=== PATIENT | female | born 2000 | race Caucasian/White ===

== ENCOUNTER 2020-10-27 16:57 | Emergency (ER) | payer SELFPAY ==
[2020-10-27 17:31] VITALS: BP 120/79; BP 126/78; PULSE 132; RESP 16; TEMP 36.9; O2SAT 98; BMI 22.6
--- NOTE | 2020-10-27 18:43 | PC.NURSE ---
pt left WR without being seen. She ambulated with steady gait
== END 2020-10-27 19:01 | disposition left against medical advice (07) ==
PROVIDERS: Emergency Provider Emergency Medicine
DX: J02.9 Acute pharyngitis, unspecified (principal); R11.2 Nausea with vomiting, unspecified
CPT/HCPCS: 99281; 99282

== ENCOUNTER 2024-09-17 21:56 | Inpatient (IN) | payer BC, SELFPAY ==
[2024-09-17 22:12] VITALS: BP 110/80; BP 117/96; PULSE 102; PULSE 105; RESP 18; TEMP 37.1; O2SAT 98; BMI 26.6
--- NOTE | 2024-09-17 22:15 | ED.PSYCH ---
HPI - Psych General Chief Complaint: Psychiatric Symptoms Stated Complaint: mental breakdown, depresseion, si Time Seen by Provider: 09/17/24 22:15 Source: patient Mode of arrival: EMS Limitations: no limitations History of Present Illness ED Provider: HPI Narrative: Patient's history of depression had few drinks and driving with her mother had a mental breakdown started crying with SI with no plan patient is tearful in between Related Data Home Medications ?Medication ?Instructions ?Recorded ?Confirmed cetirizine 10 mg capsule (Zyrtec) 10 mg PO DAILY PRN 02/08/22 Allergies Allergy/AdvReac Type Severity Reaction Status Date / Time amoxicillin Allergy Mild Patient Uncoded 09/17/24 22:17 feels wierd on it. Review of Systems Review of Systems: Yes all other systems are reviewed and are negative [facility] Past Medical History Medical History No known health problems Social History Social History Do you have a plan to hurt others: No Plan Physical Exam Vital Signs: Vital Signs: Last Vital Signs Temp 98.8 F 09/17/24 22:12 Pulse 102 H 09/17/24 22:12 Resp 18 09/17/24 22:12 BP 117/96 H 09/17/24 22:12 Pulse Ox 98 09/17/24 22:12 O2 Del Method Room Air 09/17/24 22:12 BMI result Body Mass Index 26.6 Appearance: Alert. Oriented X3. No acute distress. ETOH++ Eyes: PERRLA, ENT: Pharynx normal. Oral Mucosa moist Neck: Normal inspection. Neck supple. CVS: Normal heart rate and rhythm. Pulses normal. Respiratory: No respiratory distress. Equal air entry bilateral, no wheezing/rales/rhonchi Abdomen: Soft and nontender. Bowel sounds are present, no mass palpable, no CVA tenderness Skin: Skin warm and dry. Normal skin color. Normal skin turgor. Extremities: No lower extremity edema. No calf tenderness psych: Depressed crying denies SI at this time Neuro: Oriented X 3. No motor deficit. No sensory deficit.No cerebellar signs , cranial nerves II-XII intact Medications Administered Discontinued Medications Generic Name Dose Route Start Last Admin Trade Name Freq PRN Reason Stop Dose Admin Lorazepam 2 mg 09/17/24 22:24 09/17/24 22:28 Lorazepam 1 Mg Tablet PO 09/17/24 22:25 2 mg ONCE ONE Administration Lorazepam 2 mg 09/18/24 03:22 09/18/24 03:28 Lorazepam 2 Mg/Ml Vial IM 09/18/24 03:23 2 mg STAT STA Administration Ondansetron HCl 4 mg 09/17/24 22:46 09/17/24 22:49 Ondansetron Odt 4 Mg Tab.Rapdis TRANSLINGU 09/17/24 22:47 4 mg ONCE ONE Administration Medical Decision Making Medical Decision Making MDM Narrative: Patient's depression, anxiety with suicidal ideation without any plan intoxicated will get care team involved Lab Data MDM Lab Attestation statement: I reviewed the patient's lab results. 09/18/24 02:59 09/18/24 02:59 Labs: Lab Results 09/18/24 Range/Units 02:59 WBC 7.8 (4.8-10.8) X10*3/uL RBC 5.04 (4.20-5.50) X10*6/uL Hgb 15.4 (12.0-16.0) g/dl Hct 45.0 (37.0-47.0) % MCV 89.3 (80.0-98.0) fL MCH 30.6 (27.0-33.0) pg MCHC 34.2 (31.0-35.0) g/dl RDW 12.4 (11.0-16.0) % Plt Count 252 (160-400) X10*3/uL MPV 9.3 L (9.4-12.3) fL Immature Gran % (Auto) 0.4 (0.0-0.4) % Neut % (Auto) 75.4 H (45-73) % Lymph % (Auto) 19.8 L (20-40) % [place] % (Auto) 3.9 (2-11) % Eos % (Auto) 0.0 (0-4) % Baso % (Auto) 0.5 (0-2) % Lymph # (Auto) 1.5 (1.2-4.9) X10*3/uL [place] # (Auto) 0.3 (0.1-1.2) X10*3/uL Eos # (Auto) 0.0 (0.0-0.4) X10*3/uL Baso # (Auto) 0.0 (0.0-0.2) X10*3/uL Abs Immat Gran (auto) 0.03 (0.00-0.03) X10*3/uL Absolute Neuts (auto) 5.9 (2.0-8.3) x10*3/uL Absolute Nucleated RBC 0.000 (0.0-0.012) X10*3/uL Nucleated RBC % (auto) 0.0 (0.0-0.2) /100WBC Sodium 146 H (135-145) mmol/L Potassium 4.2 (3.3-5.1) mmol/L Chloride 114 H (96-108) mmol/L Carbon Dioxide 21 L (22-29) mmol/L Anion Gap 15 (12-20) BUN 10 (9-16) mg/dL Creatinine 0.72 (0.5-1.4) mg/dL Estim Creat Clear Calc 109.6 Estimated GFR > 60 Random Glucose 91 (60-115) mg/dL Calcium 9.1 (8.4-10.2) mg/dL Total Bilirubin 0.2 (0.0-1.0) mg/dL AST 22 (5-31) U/L ALT 19 (0-31) U/L Alkaline Phosphatase 29 L (39-117) U/L Total Protein 7.5 (6.5-8.0) g/dL Albumin 4.6 (3.5-5.0) g/dL Urine Test NEGATIVE (NEGATIVE) Salicylates < 5.0 L (15-30) mg/dL Urine Opiates Screen Not Detected (Not Detect) Ur Buprenorphine Scrn Not Detected (Not Detect) ng/mL Ur Oxycodone Screen Not Detected (Not Detect) ng/mL Urine Methadone Screen Not Detected (Not Detect) ng/mL Urine Fentanyl Screen Not Detected (Not Detect) Acetaminophen < 3 (<30) mcg/mL Ur Barbiturates Screen Not Detected (Not Detect) Ur Phencyclidine Scrn Not Detected (Not Detect) Ur Amphetamines Screen Not Detected (Not Detect) U Benzodiazepines Scrn Not Detected (Not Detect) Urine Cocaine Screen Not Detected (Not Detect) U Marijuana (THC) Screen POSITIVE H (Not Detect) Ethyl Alcohol 140 mg/dL Discharge Plan Discharge Clinical Impression: Depression, Acute anxiety, Alcohol intoxication Patient Disposition: Still a Patient Prescriptions: No Action Zyrtec 10 mg capsule 10 mg PO DAILY PRN Interventions: Ewing-Suicide Risk Severity Scale Last Done: 09/18/24 01:00 Print Language: Unknown
[2024-09-17] MEDS: LORazepam 1 MG TABLET 2 MG PO (22:28)
[2024-09-17] MEDS: Ondansetron ODT 4 MG TAB.RAPDIS TRANSLINGU (22:49)
--- NOTE | 2024-09-17 23:24 | PC.NURSE ---
client asked about keys and phone, iddnt have with her, expressed concern about her cat missing her, and expressed that she only wanted her father spoken to by staff. in the last ten minutes father returned call and stated he felt dtr needed help. client asleep presently.
[2024-09-18 03:05] LABS: Basophils Percent Auto 0.5 % (0-2); Hemoglobin 15.4 g/dl (12.0-16.0); Imm Gran Abs Auto 0.03 X10*3/uL (0.00-0.03); Imm Gran Pct Auto 0.4 % (0.0-0.4); Lymphocytes Absolute Auto 1.5 X10*3/uL (1.2-4.9); Lymphocytes Percent Auto 19.8 % (20-40); MANUAL DIFF FLAG NO; Mean Corpuscular HGB Conc 34.2 g/dl (31.0-35.0); Mean Corpuscular Hemoglobin 30.6 pg (27.0-33.0); Mean Corpuscular Volume 89.3 fL (80.0-98.0); Mean Platelet Volume 9.3 fL (9.4-12.3); Monocytes Absolute Auto 0.3 X10*3/uL (0.1-1.2); Monocytes Percent Auto 3.9 % (2-11); Neutrophils Absolute Auto 5.9 x10*3/uL (2.0-8.3); Neutrophils Percent Auto 75.4 % (45-73); Platelet Count 252 X10*3/uL (160-400); Red Blood Count 5.04 X10*6/uL (4.20-5.50); Red Cell Distribution Width 12.4 % (11.0-16.0); White Blood Count 7.8 X10*3/uL (4.8-10.8)
[2024-09-18 03:08] LABS: UPreg QC Valid YES; Urine Pregnancy NEGATIVE (NEGATIVE)
[2024-09-18 03:20] LABS: Amphetamine Screen Urine Not Detected (Not Detect); Barbiturates, Urine Not Detected (Not Detect); Benzodiazepines Screen Urine Not Detected (Not Detect); Buprenorphine Scr Not Detected (Not Detect); Cannabinoid Screen Urine POSITIVE (Not Detect); Cocaine Screen Urine Not Detected (Not Detect); Fentanyl, urine Not Detected (Not Detect); Methadone Screen, Urine Not Detected (Not Detect); Opiate Screen Urine Not Detected (Not Detect); Oxycodone Screen Urine Not Detected (Not Detect); Phencyclidine Screen Urine Not Detected (Not Detect)
[2024-09-18 03:27] LABS: Alanine Aminotransferase 19 U/L (0-31); Albumin Level 4.6 g/dL (3.5-5.0); Anion Gap 15 (12-20); Aspartate Amino Transferase 22 U/L (5-31); Bilirubin Total 0.2 mg/dL (0.0-1.0); Blood Urea Nitrogen 10 mg/dL (9-16); Calcium 9.1 mg/dL (8.4-10.2); Carbon Dioxide 21 mmol/L (22-29); Chloride 114 mmol/L (96-108); Creatinine Clr Calc Pharmacy 109.6; Estimated Glomerular Filt Rate > 60; Ethanol 140 mg/dL; Glucose Random 91 mg/dL (60-115); Potassium 4.2 mmol/L (3.3-5.1); Sodium 146 mmol/L (135-145); Total Protein 7.5 g/dL (6.5-8.0)
[2024-09-18] MEDS: LORazepam 2 MG/ML VIAL IM ×2 (03:28→10:59)
[2024-09-18 03:49] LABS: Alkaline Phosphatase 29 U/L (39-117)
[2024-09-18 03:58] LABS: Acetaminophen LAB < 3 mcg/mL (<30); Salicylate < 5.0 mg/dL (15-30)
[2024-09-18] MEDS: Ondansetron ODT 4 MG TAB.RAPDIS TRANSLINGU (07:14)
--- NOTE | 2024-09-18 07:14 | PC.NURSE ---
Pt vomiting in room; Zofran PO gv per orders
--- NOTE | 2024-09-18 07:31 | PC.NURSE ---
Care membership counselor at bedside to eval pt
--- OUTSIDE RECORDS SUMMARY | 2024-09-18 08:06 | XMS_ITS | Continuity of Care Document ---
Author Organization [facility], , [facility] [place] OFFICE Address [address] [place] [address] [place] [address] Care Team Providers Care Community Affairs Manager Name Role Phone [facility] Informatics Application Analyst MAULIK FINK Styrene Dehydration Reactor Operator DEMARCO ALCALA Primary Care Provider [phone] Assessment No assessment recorded. Plan of Treatment Reminders Order Date Submit Date Provider Last Modified By Organization Details Last Modified Time Details Appointments None recorded. Lab None recorded. Referral None recorded. Procedures None recorded. Surgeries None recorded. Imaging None recorded. Medication Orders ondansetron 8 mg disintegrat ing tablet [address] [facility] #[id number], [address] [facility] , [place], [address], 5 15:37:02 Patient TargetsNo targets recorded. Patient InstructionsNo instructions recorded. Reason for Referral None Reported. Problems Name Problem SNOMED Code Status Onset Date Resolution Date Notes Provider Name and Address Organization Details Recorded Time Acne [id number] Active 07/26/20 16 Alicia Baires PA-C [address] [place] [address], [phone], [facility] 07/26/2016 11:53:27 Problem Notes None recorded. Procedures Surgical History Date Name Laterality Status Provider Name and Address Organization Details Recorded Time 4 G2211 completed Janet Gastelum MD [address] [place] [address], [phone], [facility] 10/15/2023 21:30:39 3 Depression Screening completed NOVEMBER CONNIE KIRBY DNP [address] [place], [address], [facility] 01/13/2023 11:40:07 3 prevention-alverto carpio alcohol misuse screening completed NOVEMBER CONNIE IS, DNP [address] [place], [address], [facility] 01/13/2023 11:40:10 1 Refraction completed Isabel Hewitt [facility] 07/02/2021 09:05:02 0 Contact Lens Re-eval completed Madeleine Vazquez, OD [address] [place], [address], [facility] 03/31/2020 09:59:53 9 POC Strep Testing completed Claudette Rubi [facility] 02/24/2019 10:57:12 8 Refraction completed [facility] 01/12/2018 11:09:45 8 Contact Lens Re-eval completed [facility] 01/12/2018 11:09:46 8 POC Flu Testing completed Anil Edge LPN [facility] 08/14/2017 10:18:55 8 POC Strep Testing completed Anil Edge TALENT ACQUISITION DIRECTOR [facility] 08/14/2017 10:18:51 7 Refraction completed [facility] 12/27/2016 09:42:21 7 Contact Lens Re-eval completed Madeleine Vazquez, OD [address] [place], [address], [facility] 12/27/2016 10:16:44 6 Contact Lens Re-eval completed Madeleine Vazquez, OD [address] [place], [address], [facility] 12/14/2015 15:24:33 6 Contact Lens Fitting completed Madeleine Vazquez, OD [address] [place], [address], [facility] 11/30/2015 15:32:50 04/07/201 6 Refraction completed Madeleine Vazquez, OD [address] [place], [address], [facility] 11/09/2015 16:28:09 Imaging Results None recorded. Procedure Notes None recorded. Medical Equipment None Reported. Allergies Allergen ID Allergen Name Allergen Category Reaction Reaction Severity Criticality Documentation Date Start Date Code Code System Note Provider Name and Address Organization Details Recorded Time [id number] amoxicill in medicatio n itching Not available Not available 08/12/2017 723 RxNorm SOLITARIO Dave, [facility] 8 07:59:55 Medications Name Sig Start Date Stop Date Status Note LastModified by Organization Details LastModified Time fluzone quadrival ent .5 ml carlton 08/08 completed Not Available Not Available Not Available sulfaceta mide sodium 10 % lotn 08/20 completed duplicat e Not Available Not Available Not Available minocycli ne hydrochlo ride 100 mg caps 08/20 completed Not Available Not Available Not Available clindamyc in/benzoy l peroxide 1-5 %gel 08/20 completed Not Available Not Available Not Available loperamid e 2 mg capsule TAKE 1 CAPSULE BY MOUTH EVERY DAY AT BEDTIME FOR 12 DAYS. 08/08 completed Not Available Not Available Not Available azithromy meredith 250 mg tablet TAKE 2 TABLETS BY MOUTH TODAY, THEN TAKE 1 TABLET DAILY FOR 4 DAYS 01/13 completed not taking 07/02/21 Not Available Not Available Not Available fluconazo le 150 mg tablet TAKE 1 TABLET BY MOUTH ONE DOSE FOR 1 DAY 01/13 completed Not Available Not Available Not Available tretinoin 0.025 % topical cream 01/13 completed Not Available Not Available Not Available minocycli ne 100 mg capsule TAKE ONE CAPSULE BY MOUTH TWICE DAILY WITH FOOD. 08/08 completed Not Available Not Available Not Available sulfaceta mide sodium (acne) 10 % lotion (suspensi on) 10/02 completed Not Available Not Available Not Available clindamyc in 1 %-benzoyl peroxide 5 % topical gel APPLY A SMALL AMOUNT TO AFFECTED AREA AT BEDTIME MAY BLEACH CLOTHING AND BEDDING. 01/13 completed Not Available Not Available Not Available omeprazol e 40 mg capsule,d elayed release TAKE 1 CAPSULE BY MOUTH EVERY DAY TO COMPLETE 30 DAYS REPEAT IF SYMPTOMS RECUR 01/13 completed not taking 07/02/21 Not Available Not Available Not Available ondansetr on 8 mg disintegr ating tablet PLACE 1 TABLET 3 TIMES A DAY BY TRANSLIN GUAL ROUTE NEEDED, FOR NAUSEA. active Not Available Not Available No t Available triamcino lone acetonide 0.025 % topical cream PLEASE SEE ATTACHED FOR DETAILED DIRECTIO NS active PRN Not Available Not Available No t Available doxycycli ne monohydra te 100 mg capsule 01/13 completed not taking 07/02/21 Not Available Not Available Not Available diclofena c sodium 75 mg tablet,de layed release TAKE 1 TABLET BY MOUTH TWICE A DAY 10/15 completed Not Available Not Available Not Available alclometa sone 0.05 % topical ointment APPLY TOPICALL Y TO ECZEMA ON AREA AROUND EYES TWICE A DAY FOR 1 TO 2 WEEKS, NEEDED 10/02 completed rx Not Available Not Available Not Available fluocinon natividad 0.05 % topical cream APPLY TO RASH AREAS TWICE A DAY FOR 1- 2 WEEKS NEEDED. ( NOT FOR FACE) 08/08 completed prn Not Available Not Available Not Available ondansetr on 4 mg disintegr ating tablet Place 1 tablet twice a day by translin gual route as needed for 25 days. 2024 active Not Available Not Available Not Avai lable amoxicill in 875 mg-potass ium clavulana te 125 mg tablet TAKE 1 TABLET BY MOUTH TWICE A DAY FOR 7 DAYS 08/12 completed Not Available Not Available Not Available amoxicill in 500 mg-potass ium clavulana te 125 mg tablet TAKE 1 TABLET BY MOUTH THREE TIMES A DAY FOR 7 DAYS 01/13 completed Not Available Not Available Not Available Laura 14 mcg/24 hr (up to 3 years) 13.5 mg intrauter ine device Take by intraute rine route. 10/02 completed Not Available Not Available Not Available Kyleena 17.5 mcg/24 hr (up to 5 years) 19.5 mg intrauter ine device Take by intraute rine route. 01/13 completed Pt reports IUD has been removed- 07/02/21 Not Available Not Available Not Available Flucelvax Quad [id number] (PF) 60 mcg (15 mcg x 4)/0.5 mL IM syringe TO BE ADMINIST ERED BY ARIANNE TYSON FOR IMMUNIZA TION 08/20 completed Not Available Not Available Not Available Vitals Date Recorded Body height Body mass index (BMI) Body weight Heart rate Oxygen saturation Oxygen saturation in Arterial blood by Pulse oximetry Systolic blood pressure Diastolic blood pressure Provider Name and Address Organization Details Last Updated DateTime 5 154.94 cm 23.7 kg/m2 55224.1 g 71 /min 100 % 100 % 122 mm[Hg] 76 mm[Hg] Liz Sparrow [facility] 5 15:01:21 Social History Question Answer Notes LastModified by Organizat ion Details LastModified Time Tobacco Smoking Status Never Smoker SHAY Guerra, [facility] 10/16/2023 15:34:39 What Is Your Level Of Alcohol Consumption? Occasional 1-2 Drinks/month . Information not available 10/16/2023 Do You Wear A Helmet When Biking? Yes Information not available 07/26/2016 What Is Your Level Of Caffeine Consumption? Moderate 1/2 Cup Daily Information not available 01/13/2023 How Much Tobacco Do You Chew? None Information not available 07/26/2016 Are You Currently Employed? Yes Information not available 08/08/2023 What Type Of Diet Are You Following? REGULAR [email or web address] Information not available 10/15/2017 Which Illicit Or Recreational Drugs Have You Used? THC/CBD Gummes [email or web address] Information not available 01/13/2023 Do You Or Have You Ever Used E-cigarettes Or Vape? 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 [employer] Information not available 08/08/2023 Have There Been Any Changes To Your Family Or Social Situation? No [email or web address] Information not available 01/13/2023 Are There Any Guns Present In Your Home? No Information not available 07/26/2016 Do You Use Insect Repellent Routinely? No [email or web address] Information not available 01/13/2023 Live Alone Or With Others? With Others Dorm [employer] With Roomates; With Family Otherwise Information not available 07/26/2016 Patient Has Health Care Proxy Signed And In Chart Yes [email or web address] Information not available 01/06/2019 Marital Status Single Informati on not available 07/26/2016 Mosquito Repellent Used Routinely Yes Information not available 07/26/2016 What Was The Date Of Your Most Recent Tobacco Screening? 10/16/2023 Information not available 10/16/2023 How Many Children Do You Have? 0 Information not available 07/26/2016 Do You Use Your Seat Belt Or Car Seat Routinely? Yes [email or web address] Information not available 01/13/2023 Seat Belts Used Routinely Yes Information not available 07/26/2016 Are You Sexually Active? Yes [email or web address] Information not available 10/15/2017 Smoke Alarm In Home Yes Information not available 07/26/2016 Do You Have Smoke And Carbon Monoxide Detectors In Your Home? Yes Information not available 08/08/2023 Are You Passively Exposed To Smoke? No Information not available 08/08/2023 Do You Or Have You Ever Used Smokeless Tobacco? Never Used Smokeless Tobacco [email or web address] Information not available 10/16/2023 How Much Tobacco Do You Smoke? No [email or web address] Information not available 10/16/2023 General Stress Level Medium Information not available 07/26/2016 Do You Use Any Illicit Or Recreational Drugs? Yes [email or web address] Information not available 01/13/2023 Do You Use Sunscreen Routinely? Yes Information not available 07/26/2016 Do You Or Have You Ever Used Any Other Forms Of Tobacco Or Nicotine? No Information not available 08/08/2023 Sex: Unknown Functional Status Question Answer Note LastModified by Organizat ion Details LastModified Time What is your exercise level? Occasional Information not available 07/26/2016 Mental Status None recorded. Family History Nothing Reported Notes:M GM: d alzheimers, le ukemia M GF: d depression P GM: d P GF: d [place] Mom: 52 A&W Dad: 56 CHF, heart transplant Sis: 0 Bro: 0 Mary: 0 Son: 0 Medical History No medical history recorded. Gynecological History Statement/Question Response Menses Monthly N Current Control Method IUD Date of LMP 09/18/2017 Obstetrics History GPAL:G 0 P 0 0 0 0 Immunizations Vaccine Type Date Status Note Provider Nam e and Address Organization Details Recorded Time Influenza, split virus, quadrivalent, preservative 6 completed Not Available [facility] 08/14/2023 15:17:26 Tdap 9 completed Not Available [facility] 08/21/2019 02:24:00 influenza, unspecified formulation 7 completed Not Available [facility] 08/14/2023 15:17:26 Influenza, split virus, quadrivalent, preservative 9 completed Not Available [facility] 08/14/2023 15:17:25 Influenza, split virus, quadrivalent, preservative 0 completed Not Available [facility] 08/14/2023 15:17:25 COVID-19, mRNA, LNP-S, PF, 100 mcg/0.5mL dose or 50 mcg/0.25mL dose 0 completed Not Available [facility] 08/14/2023 15:17:26 COVID-19, mRNA, LNP-S, PF, 100 mcg/0.5mL dose or 50 mcg/0.25mL dose 1 completed Not Available [facility] 08/14/2023 15:17:26 Past Encounters Encounter ID Performer Location Encounter Start Date Encounter Closed Date Diagnosis/Indication Diagnosis SNOMED-CT Code Diagnosis ICD10 Code Diagnosis Note [id number] Demarco Alcala MD , [facility] [place] [place]ICE [address] [place] [address] 08/27/2024 14:45:41 08/27/2024 16:42:46 Nausea and vomiting [id number] R11.2 generalize d GI upset, unable to drink and feeling dehydrated as beforestoo l is formed, passed several times in AMwishes to eat but feels ill looking at it abdomen is benign she worries in her stomachflu ids encouraged zofran should help her tolerate meals asked to let us know if symptos worsen, onset pain or fever, or emesis Health Concerns Section Related Observation LastModified by Organization Detai ls LastModified Time None Recorded Concern Status LastModified by Organization Details LastModified Time None Recorded Payers Encounter Date Sequence Insurance Name Policy Number Policy Pelayo Covered Member ID Pelayo Member ID Guarantor Name 08/27/2024 1 [facility] [place] [id number] Erika Sage [id number] Erika Sage OBGyn Episode No OBEpisode recorded.
--- OUTSIDE RECORDS SUMMARY | 2024-09-18 08:06 | XMS_ITS | Data Portability ---
Author Organization [facility], [facility] Address [address] [place] [address] Care Team Providers Care Bb Shot Packer Name Role Phone [facility] Team Primary Care Physician MAULIK FINK Gis Administrator DEMARCO ALCALA Primary Care Provider Assessment Encounter Date Assessment Date Assessment LastModified by Organization Details LastModified Time 02/17/2023 02/17/2023 After a discussion of treatment options, which included consideration of best practices and patient preferences, the following treatment plan and objectives were adopted: [email or web address] Not available 02/17/2023 09:47:28 10/16/2023 10/16/2023 last Pap , overdue.she will make an appt. [email or web address] Not available 10/16/2023 16:12:55 Plan of Treatment Reminders Order Date Submit Date Provider Last Modified By Organization Details Last Modified Time Details Appointments None recorded. Lab None recorded. Referral None recorded. Procedures None recorded. Surgeries None recorded. Imaging None recorded. Medication Orders ondansetron 8 mg disintegrat ing tablet 2024 025 [id number], [id number] [place], [address], 5 15:37:02 Anti-Diarrh eal (loperamide ) 2 mg capsule 2022 023 [id number], [id number] [place], [address], 4 14:00:58 Patient TargetsNo targets recorded. Patient Instructions Encounter Date Encounter Id Patient Instructions Last Modified By Organization Details Last Modified Time 08/08/2023 [id number] After a discussion of treatment options, which included consideration of best practices and patient preferences, the previous treatment plan and objectives were adopted: [email or web address] Not available 08/08/2023 14:50:52 10/16/2023 [id number] [facility] serves as the focal point for all health care services the patient needs. [email or web address] Not available 10/15/2023 21:30:39 Reason for Referral None Reported. Results Created Date Observation Date Name Description Value Unit Range Abnormal Flag Note LastModifiedBy Organization Detail LastModifiedTime 08/14/19 24 08/14/2023 xr foot 3 or more views (left ) This image report has been auto-f inaliz ed and has not been read by a Radiol ogist. Interp retati on has been includ ed in the [facility] er encoun ter note for this date of farrah montero Final result DMEARCO SAAVEDRA [facility] [address] [place], [address], 08/14/2023 13:09:16 Result Notes None recorded. Problems Name Problem SNOMED Code Status Onset Date Resolution Date Notes Provider Name and Address Organization Details Recorded Time Acne [id number] Active 07/26/20 16 Alicia Baires PA-C [address] [place] [address], [phone], [facility] 07/26/2016 11:53:27 Problem Notes None recorded. Procedures Surgical History Date Name Laterality Status Provider Name and Address Organization Details Recorded Time 4 G2211 completed Janet Brumfield. [address] [place] [address], [address], [facility] 10/15/2023 21:30:39 3 Depression Screening completed NOVEMBER CONNIE KIRBY DNP [address] [place] [address], [phone], [facility] 01/13/2023 11:40:07 3 prevention-alverto carpio alcohol misuse screening completed NOVEMBER CONNIE KIRBY DNP [address] [place] [address], [place], [address], [facility] 01/13/2023 11:40:10 1 Refraction completed Isabel Hewitt [facility] 07/02/2021 09:05:02 0 Contact Lens Re-eval completed Madeleine Vazquez, OD [address] [place], [address], [facility] 03/31/2020 09:59:53 9 POC Strep Testing completed Claudette Rubi [facility] 02/24/2019 10:57:12 [address] [facility] 01/12/2018 11:09:45 8 Contact Lens Re-eval completed [facility] 01/12/2018 11:09:46 8 POC Flu Testing completed Anil Edge LPN [facility] 08/14/2017 10:18:55 8 POC Strep Testing completed Anil Edge [employer] [facility] 08/14/2017 10:18:51 [address] [facility] 12/27/2016 09:42:21 7 Contact Lens Re-eval completed Madeleine Vazquez, OD [address] [place], [address], [facility] 12/27/2016 10:16:44 6 Contact Lens Re-eval completed Madeleine Tesfaye George, OD [address] [place], [address], [facility] 12/14/2015 15:24:33 6 Contact Lens Fitting completed Madeleine Vazquez, OD [address] [place], [address], [facility] 11/30/2015 15:32:50 6 Refraction completed Madeleine Vazquez, OD [address] [place], [address], [facility] 11/09/2015 16:28:09 Imaging Results Imaging Date Name Status LastModified by Organiz ation Details LastModified Time 08/14/2023 xr foot 3 or more views (left) completed [facility] [address], [place], [address], 08/14/2023 13:09:16 Procedure Notes None recorded. Medical Equipment None Reported. Allergies Allergen ID Allergen Name Allergen Category Reaction Reaction Severity Criticality Documentation Date Start Date Code Code System Note Provider Name and Address Organization Details Recorded Time 20190109 amoxicill in medicatio n itching Not available Not available 08/12/2017 723 RxNorm Norah Quevedo LPN [facility] 8 07:59:55 Medications Name Sig Start Date Stop Date Status Note LastModified by Organization Details LastModified Time fluzone quadrival ent 9282-8068 .5 ml carlton 08/08 completed Not Available [...] Available Not Available Not Available Flucelvax Quad 0637-9615 (PF) 60 mcg (15 mcg x 4)/0.5 [...] and Address Organization Details Last Updated DateTime 3 154.94 cm 23.7 kg/m2 31840.1 5 g 64 /min 98 % 98 % 92 mm[Hg] 56 mm[Hg] Salome Oconnell CMA [facility] 3 09:39:28 Date Recorded Body height Body mass index (BMI) Body weight Body temperature Heart rate Oxygen saturation Oxygen saturation in Arterial blood by Pulse oximetry Systolic blood pressure Diastolic blood pressure Provider Name and Address Organization Details Last Updated DateTime 4 154.94 cm 23.5 kg/m2 90648.2 5 g 98.1 [degF] 68 /min 99 % 99 % 102 mm[Hg] 58 mm[Hg] Alessia Alexander Cecelia [facility] 4 14:08:51 Date Recorded Body height Body mass index (BMI) Body weight Heart rate Oxygen saturation Oxygen saturation in Arterial blood by Pulse oximetry Systolic blood pressure Diastolic blood pressure Provider Name and Address Organization Details Last Updated DateTime 4 154.94 cm 24.4 kg/m2 79439.4 2 g 69 /min 99 % 99 % 110 mm[Hg] 70 mm[Hg] SHAY Guerra [facility] 4 15:36:32 Date Recorded Body height Body mass index (BMI) Body weight Heart rate Oxygen saturation Oxygen saturation in Arterial blood by Pulse oximetry Body temperature Systolic blood pressure Diastolic blood pressure Provider Name and Address Organization Details Last Updated DateTime 4 154.94 cm 23.8 kg/m2 12180.6 4 g 75 /min 100 % 100 % 98.7 [degF] 100 mm[Hg] 70 mm[Hg] Claudette Rubi [facility] 4 16:23:04 Date Recorded Body height Body mass index (BMI) Body weight Heart rate Oxygen saturation Oxygen saturation in Arterial blood by Pulse oximetry Systolic blood pressure Diastolic blood pressure Provider Name and Address Organization Details Last Updated DateTime 5 154.94 cm 23.7 kg/m2 94143.1 g 71 /min 100 % 100 % 122 mm[Hg] 76 mm[Hg] Liz Sparrow [facility] 5 15:01:21 Social History Question Answer Notes LastModified by Organizat ion Details LastModified Time Tobacco Smoking Status Never Smoker SHAY Guerra marquita, [facility] 10/16/2023 15:34:39 What Is Your Level Of Alcohol Consumption? Occasional 1-2 Drinks/month . [email or web address] Information not available 10/16/2023 Do You Wear A Helmet When Biking? Yes Information not available 07/26/2016 What Is Your Level Of Caffeine Consumption? Moderate 1/2 Cup Daily [email or web address] Information not available 01/13/2023 How Much Tobacco Do You Chew? None Information not available 07/26/2016 Are You Currently Employed? Yes Information not available 08/08/2023 What Type Of Diet Are You Following? REGULAR Information not available 10/15/2017 Which Illicit Or Recreational Drugs Have You Used? THC/CBD Gummes [email or web address] Information not available 01/13/2023 Do You Or Have You Ever Used E-cigarettes Or Vape? 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 [employer] Information not available 08/08/2023 Have There Been Any Changes To Your Family Or Social Situation? No [email or web address] Information not available 01/13/2023 Are There Any Guns Present In Your Home? No Information not available 07/26/2016 Do You Use Insect Repellent Routinely? No [email or web address] Information not available 01/13/2023 Live Alone Or [...] Of Your Most Recent Tobacco Screening? 10/16/2023 [email or web address] Information not available 10/16/2023 How Many Children Do You Have? 0 Information not available 07/26/2016 Do You Use Your Seat Belt Or Car Seat Routinely? Yes [email or web address] Information not available 01/13/2023 Seat Belts Used Routinely Yes Information not available 07/26/2016 Are You Sexually Active? Yes [email or web address] Information not available 10/15/2017 Smoke Alarm In Home Yes Information not available 07/26/2016 Do You Have Smoke And Carbon Monoxide Detectors In Your Home? Yes Information not available 08/08/2023 Are You Passively Exposed To Smoke? No Information not available 08/08/2023 Do You Or Have You Ever Used Smokeless Tobacco? Never Used Smokeless Tobacco Information not available 10/16/2023 How Much Tobacco Do You Smoke? No [email or web address] Information not available 10/16/2023 General Stress Level Medium Information not available 07/26/2016 Do You Use Any Illicit Or Recreational Drugs? Yes [email or web address] Information not available 01/13/2023 Do You Use [...] depression P GM: d P GF: d PR Mom: 52 A&W Dad: 56 CHF, heart [...] virus, quadrivalent, preservative 6 completed Not Available [facility] 08/14/2023 15:17:26 Tdap 9 completed Not Available [facility] 08/21/2019 02:24:00 influenza, unspecified formulation 7 completed Not Available [facility] 08/14/2023 15:17:26 Influenza, split virus, quadrivalent, preservative 9 completed Not Available [facility] 08/14/2023 15:17:25 Influenza, split virus, quadrivalent, preservative 0 completed Not Available [facility] 08/14/2023 15:17:25 COVID-19, mRNA, LNP-S, PF, 100 mcg/0.5mL dose or 50 mcg/0.25mL dose 0 completed Not Available [facility] 08/14/2023 15:17:26 COVID-19, mRNA, LNP-S, PF, 100 mcg/0.5mL dose or 50 mcg/0.25mL dose 1 completed Not Available [facility] 08/14/2023 15:17:26 Past Encounters Encounter ID Performer Location Encounter Start Date Encounter Closed Date Diagnosis/Indication Diagnosis SNOMED-CT Code Diagnosis ICD10 Code Diagnosis Note [id number] [facility], [address] [address] 11/09/2015 15:48:05 11/14/2015 13:52:19 Myopia 58560525 H52.13 possible Cl's fitting. Needs to talk to parents. [id number] Madeleine Vazquez, OD [facility], [address] [address] 11/30/2015 14:18:14 11/30/2015 15:27:16 Myopia 97987683 H52.13 Oasys 8.4/-1.75s ph OU Good vision OD and OS; good comfort, good movement and central position OD and OS; [id number] Madleeine Vazquez, OD [facility], [address] [address] 12/14/2015 14:38:40 12/14/2015 15:25:58 Myopia 71807567 H52.13 Oasys 8.4/-1.75s ph OU Good vision OD and OS; good comfort, good movement and central position OD and OS; [id number] Blake Prakash MD , [facility], OFFICE [address] [place] [address] 07/26/2016 10:49:29 07/30/2016 08:36:07 Venereal disease screening 409692630 Z11.3 Adult heal th examination 767929550 Z00.00 Healthy, pleasant young female. No complaints or concerns. Pt to send records from pediatrici an. Counseling 517789414 Z71 .9 Acute uppe r respiratory infection 85022632 J06.9 Rhinorrhea , nasal congestion , productive cough x6-7 days, but improving. Likely viral. Recommend cough expectoran t during daytime (mucinex or robitussin ) and cough suppressan t if needed at nightime (delsym, DM robitussin ). Also encourage extra rest/sleep , semi-uprig ht sleep position, increased fluids to be well hydrated, humidifier /warm steam shower, acetaminop hen or ibuprofen for GALARZA/pain as needed. If your symptoms worsen or do not gradually improve, please call back. Acne 26619002 L70.9 Followed by dermatolog y. 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 Most of the time sinusitis does not require antibiotic s as we can fight it off ourselves. In your case I am going to start antibiotic s right away because your symptoms have been with you for several months and also because the sinuses involved seem to be the frontal sinuses which can be more serious. The most important things to do are getting extra rest, additional fluids especially hot things like tea and soup, and 2 nasal sprays that I will explain. As far as the rest I recommend napping. This will help your immune system to fight off the infection. Use SALT WATER NOSE SPRAY frequently throughout the day or salt water cleansing of the sinuses with a Neti pot. Start using the salt water nasal spray right away. The other is a DECONGESTA NT NASAL SPRAY such as Afrin long-actin g 12 hour nasal decongesta nt spray. Use 2 sprays in each nostril morning and night for 3 DAYS ONLY. This is a nasal spray that can be harmful if used more than 3 days as it causes rebound swelling. However if you use it for just 2-3 days, it shrinks down the mucous membranes and allows your sinuses to clear. If you are not having significan t improvemen t after 5 d, please call our office, and call sooner if you are getting worse such as developing a fever. consider probiotics for next 9 days [id number] NILSA Mesa, [facility], OFFICE [address] [place] [address] 08/12/2017 07:34:54 08/12/2017 08:32:05 Acute sinusitis 74180810 J01.90 Worsening Sx after prolonged course. Will treat with abx as below due to allergy. Edu pt to finish entire course even if you feel better and take probiotic supplement while on abx. Continue with supportive care extra rest/sleep , semi-uprig ht sleeping position, humidifier /hot steam shower, warm compress, ibuprofen, and sudophed as needed. [id number] NILSA Mesa, [facility], OFFICE [address] [place] [address] 08/14/2017 09:49:24 08/15/2017 11:47:04 Pharyngitis 445816077 J02.9 Rapid strep & flu neg. Will send throat culture due to significan t R sided symptoms to r/o infection. Otherwise suspect viral nature. Recommend supportive care with salt-water gargles, ibuprofen/ tylenol PRN, increased fluids, humidifier , extra sleep/rest . Work note given. [id number] Alicia Baires PA-C , [facility], OFFICE [address] [place] [address] 10/15/2017 09:49:48 10/16/2017 13:55:54 Adult health examination 799465938 Z00.00 Benign exam.PAP due 03/2019. Counseling 226662020 Z71 .9 Depression screening 171 761465 Z13.89 depression screening tool administer ed, entered into emr, scored and discussed, time greater than 7.5 minutes Venereal d isease screening 322285302 Z11.3 [id number] Madeleine Vazquez, OD [facility], [facility] [address] [facility] [place] [address] 01/12/2018 10:47:15 01/12/2018 11:45:11 Myopia 47040222 H52.13 Good vision OD and OS; good comfort, good movement and central position OD and OS; [id number] Yuan Ann MD , [facility], OFFICE [address] [place] [address] 01/04/2019 09:31:30 01/04/2019 10:15:43 Adult health examination 165584662 Z00.00 see Risk Assessment and Lifestyle Change Counseling section above. Will follow-up with Pt PRN or in 1 year for annual wellness visit. All questions were addressed. Pt understand s and agrees with treatment plan Counseling 583630150 Z71 .9 Advised Pt to exercise 30 minutes a day, educated Pt on portion size with carbohydra ibis, and to avoid fast food/froze n meals/swee ts/soda. Depression screening 171 746437 Z13.89 depression screening tool administer ed, entered into emr, scored and discussed, time greater than 7.5 minutes Venereal d isease screening 849644711 Z11.3 Active or passive immunization 752122110 Z23 Posterior epistaxis 2323 54761 R04.0 Discussed about continue using saline spray when Pt knows she has dry nose and purchasing a humidifier which can helps alleviate the symptoms of dry air which can prevent recurrent nose bleed. All questions were addressed. Pt understand s and agrees with treatment plan [id number] Kasey Segundo MD , [facility], OFFICE [address] [place] [address] 02/24/2019 10:39:17 02/24/2019 11:26:52 Acute pharyngitis 572377120 J02.9 Your sore throat is not felt to be a strep throat. It is felt to be viral. In most cases we send a formal culture to the lab to confirm this. Advice: Increase fluids a great deal, especially drink hot things like soup and tea. Rest, and I recommend napping 1-2 hours a day until you are better. Tylenol and/or ibuprofen for pain. Gargle with warm salt water several times a day; use 1/8 teaspoon of salt to 6-8 ounces of warm water. If your sore throat is still present in 5-7 days please contact us, and call sooner if you are developing significan t worsening such as developing a fever or inability to tolerate any oral intake. Acute uppe r respiratory infection 91964080 J06.9 [id number] Mireya Jiménez LPN , [facility], [address]ICE [address] [place] [address] 08/11/2019 08:22:49 08/11/2019 08:49:59 Tuberculosis screening 093908145 Z11.1 [id number] Kristi Dye LPN , [facility], [address]ICE [address] [place] [address] 08/13/2019 11:21:32 08/16/2019 12:21:53 Tuberculosis screening 241972948 Z11.1 [id number] Demarco Alcala MD , [facility], [address]ICE [address] [place] [address] 08/20/2019 10:29:52 08/20/2019 11:30:42 Acute upper respiratory infection 57567358 J06.9 diffuse resp symptoms with post nasal drip , nasal congestion , sore throatvira l synfrom ediscussep t reassurred [id number] Madeleine Vazquez, OD [facility], [facility] [address] [place] [address] 03/10/2020 15:11:08 03/31/2020 12:54:09 Myopia 38906003 H52.13 Good vision OD and OS; good comfort OD and OS; [id number] Demarco Alcala MD , [facility], [address]ICE [address] [place] [address] 08/08/2020 11:32:53 08/09/2020 17:37:22 Viral syndrome 408159644 B34.9 woke up this AM had stomach cramps, diarrhea, nausea, hands clammy and not feeling well no contacts works at [employer] sars covid at [facility] prdered, they will contact pt. reassurred that a diarrheal syndrome is going around offered support [id number] Erika Edmonds MD , [facility], [address] [place] [address] 08/26/2020 10:02:56 08/26/2020 10:39:52 Nausea, vomiting and diarrhea 3135042 R11.2 Still sounds like stomach bug/gastro enteritis however long time course is atypical. -plain diet -hydrate with electrolyt es -doubt celiac disease given nausea/vom iting would be atypical -stool tests (giardia, crypto, c diff) I searched for, but did not find, reports of Covid vaccine reactions with similar gastrointe stinal symptoms (pt got first dose of Moderna vax 08/03/2020 ), so would recommend she get second dose. [id number] Miriam Lujan D.O. FP, [facility], OFFICE [address] [place] [address] 10/02/2020 08:03:10 10/04/2020 17:26:04 Injury of great toe 863847398 S99.922A Injury to L great toe yesterday Pain extending from toe into foot Toe appears edematous, erythemato brady. Limited ROM, difficulty applying weight to this side of foot. Will obtain images to evaluate for possible fx In the meantime advise rest, ice, elevation, nsaids/apa p Will f/u based on results Pt agrees with plan [id number] Madeleine Vazquez, OD [facility], [address] [address] 07/02/2021 14:13:28 07/02/2021 15:28:26 Myopia 86250679 H52.13 Good vision OD and OS; good comfort, good movement OD and OS; Astigmatism 67332561 H52 .003 [id number] Madeleine Vazquez, OD [facility], [address] [address] 07/16/2021 09:40:35 07/19/2021 14:36:42 Myopia 03983962 H52.13 contact lenses 20/20-1 OS due to astigmatis m not corrected by sph; good comfort, good movement OD and OS; [id number] Miriam BOLTON, [facility], OFFICE [address] [place] [address] 01/13/2023 11:00:11 01/13/2023 12:17:39 Adult health examination 133005738 Z00.00 USPSTF guidelines reviewed and discussed with patientche ck Hep C screeningP AP due- declines- will schedule f/u. 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 Last visit we discussed FODMAP diet, loperamide as needed and keeping a food journal to review this visit. 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 Irene zavala consumes almond milk and dairy free yogurt (no dx lactose intoleranc e) at home. Diarrhea has improved since last month but does alternate with constipati on. Since diarrhea is improving- she will continue to monitor intake- making notes of foods that exacerbate her symptoms. Advised to reduce her intake of greasy/fri ed foods, dairy and see if symptoms improveDDx lactose intoleranc e, celiac disease, IBS-D, anxiety--s he will f/u in April or sooner as needed [id number] ADAM Regan, [facility], [address] [place] [address] 08/08/2023 13:50:15 08/08/2023 16:51:26 Pain in left foot [id number] 50826 M79.672 Advised avoiding boots which are causing her pain, alternate ice with heat, Ibuprofen 600 mg TID-take w/food. If no improvemen t in 7-10 d. [facility] [id number] Janet Brumfield . , [facility], [address] [place] [address] 10/16/2023 15:27:45 10/16/2023 17:53:41 Dyspnea 493591090 R06.00 It seems that the first episode was consistent with a reaction to generic for lactate tablet, [employer] brand. Symptoms resolved promptly after taking Benadryl. Second episode resolved on its own after 30 seconds, neither sound like anxiety symptoms. No structural abnormalit ies. Interestin gly she states she has had Lactaid brand ice cream without any difficulty . I have asked her to have Benadryl with her at all times. Try to avoid dairy but if she were to have a daily use the Lactaid brand tablets cautiously and see if it is possible that she may have had a reaction to a component of the generic tablet. If symptoms become more frequent let us know, may need allergy testing. I advised her that hard cheeses such as cheddar and gout though do not have lactose. Intoleranc e to lactose [id number] E73.9 as above, Try to avoid daily unless Lactaid brand. [id number] Jessica Espino MD , [facility] [place], OFFICE [address] [place] [address] 12/24/2023 16:14:25 12/24/2023 16:57:29 Upper respiratory infection [id number] J06.9 x1 day of sx including cough, sinus pressure and headache. Vitals stable. Lungs clear, RRR. Denies recent fevers or SOB. Denies hx of seasonal allergies or asthma. Advised supportive care at this time--- hydration, alk tavares. cough drops. Can consider sudafed. Its possible that your sx are related to post-nasal drip. If your sx do not improve with suggestion s above you could consider trying an OTC anti-hista mine like zyrtec or claritin. Drink plenty of fluids. Eat healthy foods, lots of fruits and vegetables . Rest when you can. Take ibuprofen 400 mg or acetaminop hen 650 mg every 6 hours as needed for aches or headache and for fever. You can use a Neti pot for nasal congestion or sinus pain/press ure. Elderberry extract and Umcka are herbal remedies that have been shown to reduce length of flu-like symptoms. Gargling with salt water can help your immune system fight off the sore throat. Mix 1/2 teaspoon of salt with 8 oz warm water, gargle for 20-30 secs, and spit out the liquid. Repeat twice daily. Use Sugar free lozenges can help with a sore throat. Wash your hands frequently . Mucinex (generic name is guaifenesi n) can help thin mucus and make the cough easier to break up.Symptom s may worsen for the first 7-10 days before they improve For high fever (>101) for more than 3 days, worsening shortness of breath, cough productive of rust-color ed mucus (not dark yellow), or symptoms unchanged at two weeks, come back in for reassessme nt (local urgent care available for weekend) [id number] Demarco Alcala MD , [facility] [place], OFFICE [address] [place] [address] 08/27/2024 14:45:41 08/27/2024 16:42:46 Nausea and vomiting [id number] R11.2 generalize d GI upset, unable to [...] by Organization Details LastModified Time None Recorded Advance Directives Directive None Recorded Payers Encounter Date Sequence Insurance Name Policy Number Policy Pelayo Covered Member ID Pelayo Member ID Guarantor Name 02/17/2023 1 [place] [facility] [id number] Erika L Mazurowski [id number] Erika Mazurowski 08/08/2023 1 [place] [facility] ([place]) [id number] Erika L Mazurowski [id number] Erika Mazurowski 10/16/2023 1 [place] [facility] [place] [place] [id number] Erika L Mazurowski [id number] Erika Mazurowski 12/24/2023 1 [place] [facility] [id number] Erika L Mazurowski [id number] Erika Mazurowski 08/27/2024 1 [place] [facility] [id number] Erika L Mazurowski [id number] Erika Mazurowski Notes Date Note Type Note Provider Name and Address Organization Details Recorded Time 02/17/2023 text/html Pt present for 1 month F/U for stomach issues, states sometimes it's better, sometimes worse. Pt states she has some mucus in her throat that makes her throw up trying to get it out. Stated she has been having issues with anxiety making her sick to her stomach The week prior to her menses will feel off and anxious. This month was the week after.Notices if she eats greasy foods more than a healthierincreased mucous in her throat; was trying to clear out. Intermittent Miriam Furemily D.O. [address] [place], [phone], [facility] 02/17/2023 10:13:25 08/08/2023 text/html Left foot pain. Wore different new boots with a heel on 08/03/23. Did a lot of walking & standing. Ball of foot is still hurting from wearing the boots. Worsening. Tessy Marshall, ADAM [address] [place], [phone], [facility] 08/08/2023 14:51:11 10/16/2023 text/html Message yesterda y: Last week I took a lactose enzyme pill to see if that helped with some of the digestive complaints I had associated with eating dairy and about 30 minutes after taking the tablet I began having trouble catching my breath. It was unlike anything I experienced before and the feeling went away after taking a benadryl. I haven't taken the tablet again, but last night when I was sitting up reading in bed I suddenly had this weird feeling in my throat and like I couldn't get a breath in for a few seconds. No medicine was taken and the feeling went away, I am just now a little concerned that this is the second incident where it feels I am having an issue getting breaths in.I have also been noticing an increase in feelings of anxiety and struggling more to deal with the struggles these feelings cause and trying to function in daily life. I'm not sure if these feelings of struggling to breathe may be related. States she would get diarrhea when eating cheese, mild and cream, tried lactaid twice before and did fine, but then above episode happened. Threw out lactaid after that. 2 nights ago was in bed and felt her throat was dry and had to cough and could not breath properly, lasted 30 seconds, it resolved on its own. 2 weeks between these episodes. was vegan and when started eating dairy again started getting diarrhea when she had it.Gets anxiety around her cycle, Is not sure if anxiety played a role in her sx. No other sx with episodes, no heart racing or anxious thoughts. Janet Brumfield. [address] [place] [address], [phone], [facility] 10/16/2023 16:13:16 12/24/2023 text/html SX since yesterd ay afternoonTook alkaselzer cough and flu Denies fevers, sweaty last nightProductive cough--- not huge chucks PNA and bronchitis at workSinus infectionDenies nasal dischargesinus headache Denies new rashesDenies recent tick bites Denies SOBDenies sore throat (tickle)Denies ear pain Jessica Espino MD [address] [place] [address], [phone], [facility] 12/24/2023 16:52:08 OBGyn Episode No OBEpisode recorded.
--- NOTE | 2024-09-18 08:39 | PC.NURSE ---
Pt's father visiting at bedside; pt continues to have N/V; MD made aware; will treat per orders
[2024-09-18] MEDS: Prochlorperazine Edisylate 10 MG/2 ML VIAL IM (08:53)
[2024-09-18 09:41] VITALS: BP 125/92; PULSE 104; RESP 14; TEMP 36.9; O2SAT 100
--- NOTE | 2024-09-18 10:42 | PC.NURSE ---
Pt continues to vomit after Zofran and Compazine; made aware; pt endorses that she vomits at home, too when she's stressted ; will tx per orders; pt otherwise pleasant and cooperative with care
--- NOTE | 2024-09-18 16:27 | PC.NURSE ---
Pt having no N/V at this time
--- NOTE | 2024-09-18 16:42 | MHC.EDTECH ---
Patient requested mother Kylah take all patient belongings home. Note added to belongings list - reprinted and placed in patients chart.
[2024-09-18 18:19] VITALS: BP 105/60; PULSE 88; RESP 12; TEMP 36.8; O2SAT 99
--- NOTE | 2024-09-18 18:41 | PHA.MEDREC ---
Addendum entered by Neda Stafford RPh 09/18/24 18:49: MED REC REVIEWED BY [facility] Original Note: Pharmacy Consult ? Medication Reconciliation Reviewed med rec done by nursing.
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
[2024-09-19 08:00] VITALS: BP 130/80; PULSE 70; RESP 18; TEMP 36.8; O2SAT 100
[2024-09-19] MEDS: Ondansetron ODT 4 MG TAB.RAPDIS TRANSLINGU ×2 (09:11→17:12)
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
[2024-09-19] MEDS: hydrOXYzine HCL 25 MG TABLET PO ×2 (11:55→21:22)
[2024-09-19 19:33] VITALS: BP 96/58; PULSE 68; RESP 16; TEMP 36.6; O2SAT 99
[2024-09-19] MEDS: traZODone HCL 50 MG TABLET PO (21:22)
[2024-09-19] MEDS: Acetaminophen 325 MG TABLET 650 MG PO (21:26)
[2024-09-20] MEDS: LORazepam 1 MG TABLET PO (01:43)
[2024-09-20] MEDS: traZODone HCL 50 MG TABLET PO ×2 (01:43→20:52)
[2024-09-20 08:00] VITALS: BP 130/77; PULSE 79; RESP 18; TEMP 36.6; O2SAT 99
--- NOTE | 2024-09-20 08:27 | P.PNPSI_ITS ---
Subjective Subjective Date of Service: 09/20/24 Reason For Visit: SI Subjective Notes: Conditional Voluntary and 3 Day Healthcare Proxy: No Guardianship: No Medical Problems Affecting Mental Status: No Interim History: Pt reports feeling stronger Three day notice to 09/23. Referrals made to [facility] [place] [place] PMDD clinic Visable and interactive in the milieu. Attending Groups: Intermittent Review of Systems Acute medical concerns: No Medical Review of Systems: unchanged Review of Systems Review of Systems recovering Mental Status Exam Mental Status Exam Patient Appearance: Appropriate Patient Orientation: Person, Place, Time and Situation Level of Consciousness: Alert Patient Behavior: Appropriate, Talkative, Cooperative and Good Eye Contact Mood Description: Apprehensive Affect Description: Apprehensive Patient Cognition Impaired: No Ability to Follow Directions: Good Speech Pattern: Spontaneous Speech Memory Description: Episodic Impaired Hallucinations: None Delusions: Not Present Thought Process: Distracted Thought Content: positive for Circumstantial and positive for Suicidal Ideation (denies) Judgement: Fair Diagnostics Vital Signs (24Hr): Vital Signs - 24 hr 09/19/24 19:33 Temperature 97.8 F Pulse Rate 68 Respiratory Rate 16 Blood Pressure 96/58 L Pulse Oximetry 99 Oxygen Delivery Method Room Air BMI result Body Mass Index 26.6 Labs 09/18/24 02:59 09/18/24 02:59 Medications Medications Current Medications Acetaminophen (Acetaminophen 325 Mg Tablet) 650 mg PO Q6H PRN PRN Reason: Headache/Pain, Scale 1-10 Last Admin: 09/19/24 21:26 Dose: 650 mg Al Hydroxide/Mg Hydroxide (Magnesium Hydrox/Alum Hydrox 30 Ml Oral.Susp) 30 ml PO Q6H PRN PRN Reason: Heartburn/Nausea Hydroxyzine HCl (Hydroxyzine Hcl 25 Mg Tablet) 25 mg PO Q6H PRN PRN Reason: mild anxiety Last Admin: 09/19/24 21:22 Dose: 25 mg Lorazepam (Lorazepam 1 Mg Tablet) 1 mg PO Q4H PRN PRN Reason: severe anxiety Last Admin: 09/20/24 01:43 Dose: 1 mg Magnesium Hydroxide (Milk Of Magnesia 30 Ml Oral.Susp) 30 ml PO DAILY PRN PRN Reason: Constipation Nicotine (Nicotine 14 Mg Patch.Td24) 14 mg TRANSDERMA DAILY PRN PRN Reason: Nicotine Cravings Nicotine Polacrilex (Nicotine Polacrilex 2 Mg Gum) 2 mg BUCCAL Q2H PRN PRN Reason: Nicotine Cravings Ondansetron HCl (Ondansetron Odt 4 Mg Tab.Rapdis) 4 mg TRANSLINGU Q8H PRN PRN Reason: Nausea and Vomiting Last Admin: 09/19/24 17:12 Dose: 4 mg Trazodone HCl (Trazodone Hcl 50 Mg Tablet) 50 mg PO BEDTIME MRX1 PRN PRN Reason: Insomnia Last Admin: 09/20/24 01:43 Dose: 50 mg Allergies Allergies Allergy/AdvReac Type Severity Reaction Status Date / Time amoxicillin Allergy Mild Patient Uncoded 09/17/24 22:17 feels wierd on it. Assessment & Plan Assessment & Plan (1) PMDD (premenstrual dysphoric disorder): Status: Acute Code(s): F32.81 - Premenstrual dysphoric disorder (2) Alcohol intoxication: Status: Acute Code(s): F10.929 - Alcohol use, unspecified with intoxication, unspecified (3) Acute anxiety: Status: Acute Code(s): F41.9 - Anxiety disorder, unspecified Plan 09/20: Discharge planning Reason for continued inpatient stay Substantial Risk for: rapid decompensation Time Spent With Patient Time: Total time managing care of this patient today ____ minutes.
[2024-09-20 08:45] LABS: Cholesterol 94 mg/dL (<200); HDL Cholesterol 48 mg/dL (>40); LDL Cholesterol Calculated 36 mg/dL (<100); Triglycerides 53 mg/dL (<150)
[2024-09-20 19:51] VITALS: BP 116/73; PULSE 80; RESP 15; TEMP 36.8; O2SAT 100
[2024-09-20] MEDS: hydrOXYzine HCL 25 MG TABLET PO (20:51)
[2024-09-21 08:00] VITALS: BP 110/72; PULSE 72; RESP 16; TEMP 36.8; O2SAT 100
[2024-09-21] MEDS: Acetaminophen 325 MG TABLET 650 MG PO ×2 (12:07→21:18)
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
[2024-09-21] MEDS: traZODone HCL 50 MG TABLET PO (21:18)
[2024-09-21] MEDS: LORazepam 1 MG TABLET PO (21:19)
[2024-09-22] MEDS: Ondansetron ODT 4 MG TAB.RAPDIS TRANSLINGU (07:06)
[2024-09-22 08:00] VITALS: BP 134/64; PULSE 77; RESP 16; TEMP 36.9; O2SAT 100
--- NOTE | 2024-09-22 13:10 | P.PNPSI_ITS ---
Subjective Subjective Date of Service: 09/22/24 Reason For Visit: SI Subjective Notes: Conditional Voluntary and 3 Day Healthcare Proxy: No Guardianship: No Medical Problems Affecting Mental Status: No Interim History: Review of PMDD consultation service with [facility]. Pt is interested and will call for appointment. States she has found Trazodone helpful during her admission and requests a prescription when discharged. Denies SI,HI,AH,VH. No sx of acute dotty or psychosis. Medication Compliance: Intermittent Side effects from medications: No Attending Groups: Intermittent Review of Systems Acute medical concerns: No Review of Systems Review of Systems Denies Mental Status Exam Mental Status Exam Patient Appearance: Well Grooomed Patient Orientation: Person, Place, Time and Situation Level of Consciousness: Awake and Alert Patient Behavior: Appropriate, Cooperative and Good Eye Contact Mood Description: Anxious Affect Description: Anxious Ability to Follow Directions: Good Speech Pattern: Clear Memory Description: Intact Hallucinations: None Delusions: Not Present Thought Process: Intact Thought Content: positive for Intact Diagnostics Vital Signs (24Hr): Vital Signs - 24 hr 09/22/24 08:00 Temperature 98.4 F Pulse Rate 77 Respiratory Rate 16 Blood Pressure 134/64 Pulse Oximetry 100 BMI result Body Mass Index 26.6 Labs 09/18/24 02:59 09/18/24 02:59 Medications Medications Current Medications Acetaminophen (Acetaminophen 325 Mg Tablet) 650 mg PO Q6H PRN PRN Reason: Headache/Pain, Scale 1-10 Last Admin: 09/21/24 21:18 Dose: 650 mg Al Hydroxide/Mg Hydroxide (Magnesium Hydrox/Alum Hydrox 30 Ml Oral.Susp) 30 ml PO Q6H PRN PRN Reason: Heartburn/Nausea Hydroxyzine HCl (Hydroxyzine Hcl 25 Mg Tablet) 25 mg PO Q6H PRN PRN Reason: mild anxiety Last Admin: 09/20/24 20:51 Dose: 25 mg Lorazepam (Lorazepam 1 Mg Tablet) 1 mg PO Q4H PRN PRN Reason: severe anxiety Last Admin: 09/21/24 21:19 Dose: 1 mg Magnesium Hydroxide (Milk Of Magnesia 30 Ml Oral.Susp) 30 ml PO DAILY PRN PRN Reason: Constipation Nicotine (Nicotine 14 Mg Patch.Td24) 14 mg TRANSDERMA DAILY PRN PRN Reason: Nicotine Cravings Nicotine Polacrilex (Nicotine Polacrilex 2 Mg Gum) 2 mg BUCCAL Q2H PRN PRN Reason: Nicotine Cravings Ondansetron HCl (Ondansetron Odt 4 Mg Tab.Rapdis) 4 mg TRANSLINGU Q8H PRN PRN Reason: Nausea and Vomiting Last Admin: 09/22/24 07:06 Dose: 4 mg Trazodone HCl (Trazodone Hcl 50 Mg Tablet) 50 mg PO BEDTIME MRX1 PRN PRN Reason: Insomnia Last Admin: 09/21/24 21:18 Dose: 50 mg Allergies Allergies Allergy/AdvReac Type Severity Reaction Status Date / Time amoxicillin Allergy Mild Patient Uncoded 09/17/24 22:17 feels wierd on it. Assessment & Plan Assessment & Plan (1) PMDD (premenstrual dysphoric disorder): Status: Acute Code(s): F32.81 - Premenstrual dysphoric disorder (2) Alcohol intoxication: Status: Acute Code(s): F10.929 - Alcohol use, unspecified with intoxication, unspecified (3) Acute anxiety: Status: Acute Code(s): F41.9 - Anxiety disorder, unspecified Plan 09/20: Discharge planning 09/21: continue current tx plan 09/22/24: Preparing for discharge Patient educated on: therapeutic strategies and medical condition Reason for continued inpatient stay Substantial Risk for: stable for discharge Time Spent With Patient Time: Total time managing care of this patient today ____ minutes.
--- NOTE | 2024-09-22 14:54 | PC.NURSE ---
This assessment was done by this nurse, not by Ngoc Mahmood RN, systems error had occurred.
--- NOTE | 2024-09-22 14:58 | PC.NURSE ---
All assessments were done by this nurse, not by Ngoc Mahmood RN, systems error had occurred. IT aware.
--- NOTE | 2024-09-22 14:59 | PC.NURSE ---
All assessments were done by this nurse, not by Ngoc Mahmood RN, systems error had occurred. IT aware.
--- NOTE | 2024-09-22 15:00 | PC.NURSE ---
All assessments were done by this nurse, not by Ngoc Mhamood RN, systems error had occurred. IT aware.
--- NOTE | 2024-09-22 15:05 | PC.NURSE ---
All assessments were done by this nurse, not by Ngoc Mahmood RN, systems error had occurred. IT aware.
[2024-09-22 20:00] VITALS: BP 142/70; PULSE 68; RESP 16; TEMP 36.4; O2SAT 100
[2024-09-22] MEDS: traZODone HCL 50 MG TABLET PO ×2 (21:48→23:35)
[2024-09-22] MEDS: hydrOXYzine HCL 25 MG TABLET PO (23:35)
[2024-09-23 08:00] VITALS: BP 120/82; PULSE 70; RESP 16; TEMP 36.8; O2SAT 98
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
== END 2024-09-23 11:30 | disposition home or self-care (01) | DRG 753 ==
LOC: HO.ED 09-18 08:38 → HO.PM5 09-18 22:25
PROVIDERS: Admitting Provider Psychiatry & Neurology Psychiatry; Emergency Provider Internal Medicine; PCP Internal Medicine; Visit Provider Psychiatry & Neurology Psychiatry
DX: F32.81 Premenstrual dysphoric disorder (principal); R45.851 Suicidal ideations; Y90.6 Blood alcohol level of 120-199 mg/100 ml; F41.9 Anxiety disorder, unspecified; F10.929 Alcohol use, unspecified with intoxication, unspecified; Z79.899 Other long term (current) drug therapy
CPT/HCPCS: 36415; 80053; 80061; 80143; 80179; 80307; 81025; 85025; 99285; J0737; J2060; S9485

== ENCOUNTER → 2024-09-18 22:20 | Outpatient (BNV) | payer BC, SELFPAY | PROVIDERS: Admitting Provider Psychiatry & Neurology Psychiatry; Emergency Provider Internal Medicine; PCP Internal Medicine; Visit Provider Clinical Nurse Specialist Psychiatric/Mental Health, Adult | DX: F32.81 Premenstrual dysphoric disorder (principal); F10.929 Alcohol use, unspecified with intoxication, unspecified; F41.9 Anxiety disorder, unspecified | CPT/HCPCS: 90792; 99231; 99232 ==